=== PATIENT | female | born 1930 | race African-American/Black ===

== ENCOUNTER 2019-06-30 12:57 | Observation (INO) ==
[2019-06-30] MEDS ORDERED: SODIUM CHLORIDE 0.9% 1,000 ML IV STA (13:19)
[2019-06-30 14:23] LABS: Basophils % 0.4 % (0.0-0.8); Eosinophils # 0.1 10*3/uL (0.0-0.87); Eosinophils % 1.3 % (0.00-10.9); Hematocrit 40.9 VOL% (35.7-47.0); Hemoglobin 12.8 GM/DL (12.0-16.0); Immature Granulocytes % 0.4 %; Immature Granulocytes Absolute 0.03 #; Lymphocytes # 1.4 10*3/uL (1.4-4.0); Lymphocytes % 16.7 % (21.3-54.2); Mean Corpuscular HGB Conc 31.3 GM/DL (32-36); Mean Corpuscular Volume 94.9 FL (87-102); Mean Platelet Volume 10.6 FL (9.6-12.0); Monocytes % 4.1 % (1.7-12.7); Neutrophils % 77.1 % (38.7-73.9); Platelet Count 210 T/CUMM (130-400); Red Blood Count 4.31 MC/CUMM (3.8-5.5); Red Cell Distribution Width 14.8 % (9.3-17.3); White Blood Count 8.3 T/CUMM (4-12)
[2019-06-30 14:35] LABS: Albumin 2.6 G/DL (3.4-5.0); Bilirubin,Total 0.7 MG/DL (0.2-1.0); Total Protein 6.4 G/DL (6.4-8.3)
[2019-06-30 16:47] LABS: Apearance,Urine CLEAR (Clear); Bacteria,Urine Occasional /HPF (Few); Bilirubin,Urine Negative (Negative); Blood, Urine Negative (Negative); Glucose,Urine (UA) Negative (Negative); Ketones,Urine Negative (Negative); Mucus,Urine Occasional /LPF (Occasional); Nitrite,Urine Negative (Negative); Protein,Urine Negative; RBC,Urine 2 /HPF (0-4); Squamous Epithelial Cell,Urine Occasional /HPF (0-10); Urine Color Yellow (Yellow); Urine Specific Gravity 1.014 (1.001-1.035); Urine Urobilinogen < 2.0 EU/DL (0.2-1.0); WBC,Urine 2 /HPF (0-6)
[2019-06-30 16:54] LABS: Barbiturates Screen,Urine Negative (Negative); Benzodiazepines Screen,Urine Negative (Negative); Cannabinoid Screen,Urine Negative (Negative); Opiate Screen,Urine Negative (Negative); Phencyclidine Screen,Urine Negative (Negative)
[2019-06-30] MEDS ORDERED: ACETAMINOPHEN 325 MG TABLET PO PRN (16:55)
[2019-06-30] MEDS ORDERED: DEXTROSE 50% 25 GM/50 ML VIAL IV PRN (16:55)
[2019-06-30] MEDS ORDERED: ONDANSETRON 4 MG/2 ML VIAL IV PRN (16:55)
[2019-06-30] MEDS ORDERED: GLUCAGON 1 MG VIAL IM PRN (16:55)
[2019-06-30] MEDS ORDERED: SODIUM CHLORIDE 0.9% 1,000 ML IV SCH (17:30)
[2019-06-30] MEDS ORDERED: ENOXAPARIN 30 MG/0.3 ML SYRINGE SUBCUT SCH (21:00)
[2019-06-30] MEDS: INSULIN REGULAR 100 UNIT/ML SUBCUT SCH (21:50)
[2019-07-01 05:27] LABS: Basophils % 0.6 % (0.0-0.8); Eosinophils # 0.2 10*3/uL (0.0-0.87); Eosinophils % 2.5 % (0.00-10.9); Hematocrit 37.8 VOL% (35.7-47.0); Hemoglobin 11.9 GM/DL (12.0-16.0); Immature Granulocytes % 0.4 %; Immature Granulocytes Absolute 0.03 #; Lymphocytes # 2.4 10*3/uL (1.4-4.0); Lymphocytes % 34.1 % (21.3-54.2); Mean Corpuscular HGB Conc 31.5 GM/DL (32-36); Mean Corpuscular Volume 95.2 FL (87-102); Mean Platelet Volume 10.3 FL (9.6-12.0); Monocytes % 8.1 % (1.7-12.7); Neutrophils % 54.3 % (38.7-73.9); Platelet Count 188 T/CUMM (130-400); Red Blood Count 3.97 MC/CUMM (3.8-5.5); Red Cell Distribution Width 14.7 % (9.3-17.3); White Blood Count 6.9 T/CUMM (4-12)
[2019-07-01 05:59] LABS: Calcium 8.4 MG/DL (8.5-10.1)
[2019-07-01] MEDS ORDERED: LEVOTHYROXINE 50 MCG TABLET PO SCH (06:30)
[2019-07-01] MEDS: INSULIN REGULAR 100 UNIT/ML SUBCUT SCH ×2 (07:59→10:48)
[2019-07-01] MEDS ORDERED: PANTOPRAZOLE 40 MG TABLET PO SCH (09:00)
[2019-07-01] MEDS ORDERED: SIMVASTATIN 20 MG TABLET PO SCH (09:00)
[2019-07-01] MEDS ORDERED: DONEPEZIL 10 MG TABLET PO SCH (09:00)
[2019-07-01] MEDS ORDERED: ASPIRIN EC 81 MG TABLET PO SCH (09:00)
[2019-07-01 12:34] VITALS: BP 108/54
== END 2019-07-01 13:01 | disposition home health service (06) ==
LOC: EDUNIT# → EDBD → N.EDINP 12:57 → N.ED 12:57 → N.5E 16:09
PROVIDERS: ADMIT Internal Medicine; ATTEND Internal Medicine

== ENCOUNTER 2019-07-29 12:15 | Observation (INO) ==
[2019-07-29] MEDS ORDERED: GLUCAGON 1 MG VIAL IM PRN (13:22)
[2019-07-29] MEDS ORDERED: DEXTROSE 50% 25 GM/50 ML VIAL IV PRN (13:22)
[2019-07-29] MEDS ORDERED: ONDANSETRON 4 MG/2 ML VIAL IV PRN (13:22)
[2019-07-29] MEDS ORDERED: ACETAMINOPHEN 325 MG TABLET PO PRN (13:22)
[2019-07-29] MEDS ORDERED: GLUCOSE GEL 15 GM TUBE PO ONE (14:39)
[2019-07-29 14:48] LABS: Basophils % 0.2 % (0.0-0.8); Eosinophils # 0.1 10*3/uL (0.0-0.87); Eosinophils % 0.8 % (0.00-10.9); Hematocrit 39.1 VOL% (35.7-47.0); Hemoglobin 12.2 GM/DL (12.0-16.0); Immature Granulocytes % 0.5 %; Immature Granulocytes Absolute 0.05 #; Mean Corpuscular HGB Conc 31.2 GM/DL (32-36); Mean Corpuscular Volume 94.9 FL (87-102); Mean Platelet Volume 10.4 FL (9.6-12.0); Monocytes % 7.2 % (1.7-12.7); Neutrophils % 72.3 % (38.7-73.9); Platelet Count 218 T/CUMM (130-400); Red Blood Count 4.12 MC/CUMM (3.8-5.5); Red Cell Distribution Width 14.2 % (9.3-17.3); White Blood Count 10.3 T/CUMM (4-12)
[2019-07-29 15:09] LABS: Troponin I < 0.015 NG/ML (0.00-0.045)
[2019-07-29 15:21] LABS: Thyroid Stimulating Hormone 0.419 uIU/ml (0.358-3.74)
[2019-07-29 15:25] LABS: Albumin 2.7 G/DL (3.4-5.0); Bilirubin,Total 0.4 MG/DL (0.2-1.0); Calcium 9.3 MG/DL (8.5-10.1); Osmolality,Calculated 291.7 MOS/KG (273-304); Total Protein 6.8 G/DL (6.4-8.3)
[2019-07-29] MEDS: INSULIN LISPRO 100 UNIT/ML SUBCUT SCH ×2 (17:38→21:18)
[2019-07-29] MEDS: SODIUM CHLORIDE 0.9% 1,000 ML IV SCH ×2 (17:38→21:19)
[2019-07-29] MEDS: DOCUSATE SODIUM 100 MG CAPSULE PO SCH (21:17)
[2019-07-30 05:19] LABS: Calcium 8.1 MG/DL (8.5-10.1); Osmolality,Calculated 296.8 MOS/KG (273-304)
[2019-07-30] MEDS: LEVOTHYROXINE 50 MCG TABLET PO SCH (05:41)
[2019-07-30] MEDS: SODIUM CHLORIDE 0.9% 1,000 ML IV SCH ×3 (05:41→20:52)
[2019-07-30] MEDS ORDERED: ENALAPRIL 5 MG TABLET PO SCH (09:00)
[2019-07-30] MEDS: DOCUSATE SODIUM 100 MG CAPSULE PO SCH ×2 (09:11→20:49)
[2019-07-30] MEDS: PANTOPRAZOLE 40 MG TABLET PO SCH (09:11)
[2019-07-30] MEDS: ASPIRIN EC 81 MG TABLET PO SCH (09:11)
[2019-07-30] MEDS: DONEPEZIL 10 MG TABLET PO SCH (09:11)
[2019-07-30] MEDS: INSULIN LISPRO 100 UNIT/ML SUBCUT SCH ×4 (09:11→20:49)
[2019-07-30 16:02] LABS: Apearance,Urine CLOUDY (Clear); Bacteria,Urine Moderate /HPF (Few); Bilirubin,Urine Negative (Negative); Blood, Urine Small mg/dL (Negative); Glucose,Urine (UA) Negative (Negative); Ketones,Urine Negative (Negative); Nitrite,Urine Negative (Negative); Protein,Urine 100 MG/DL; Urine Color Yellow (Yellow); Urine Specific Gravity 1.012 (1.001-1.035); Urine Urobilinogen < 2.0 EU/DL (0.2-1.0); WBC,Urine 5623 /HPF (0-6)
[2019-07-30] MEDS: MEMANTINE 5 MG TABLET PO SCH (20:49)
[2019-07-31] MEDS: LEVOTHYROXINE 50 MCG TABLET PO SCH (05:33)
[2019-07-31] MEDS: SODIUM CHLORIDE 0.9% 1,000 ML IV SCH ×4 (05:33→21:17)
[2019-07-31] MEDS: ENALAPRIL 5 MG TABLET PO SCH (08:25)
[2019-07-31] MEDS: DOCUSATE SODIUM 100 MG CAPSULE PO SCH ×2 (08:44→21:17)
[2019-07-31] MEDS: ASPIRIN EC 81 MG TABLET PO SCH (08:44)
[2019-07-31] MEDS: PANTOPRAZOLE 40 MG TABLET PO SCH (08:44)
[2019-07-31] MEDS: INSULIN LISPRO 100 UNIT/ML SUBCUT SCH ×5 (08:44→21:31)
[2019-07-31] MEDS: DONEPEZIL 10 MG TABLET PO SCH (08:44)
[2019-07-31] MEDS: MEMANTINE 5 MG TABLET PO SCH ×2 (08:45→21:17)
[2019-07-31] MEDS ORDERED: cefTRIAXone 1,000 MG in SYRINGE 1 EACH IM SCH (12:30)
[2019-07-31] MEDS ORDERED: diphenhydrAMINE 25 MG/10 ML UDCUP PO ONE (15:13)
[2019-07-31] MEDS ORDERED: methylPREDNISolone SOD SUC 125 MG/2 ML VIAL IV ONE (15:13)
[2019-07-31] MEDS: ALBUTEROL/IPRATROPIUM 3 ML NEB RESP TX SCH ×2 (20:12→23:40)
[2019-08-01] MEDS: ALBUTEROL/IPRATROPIUM 3 ML NEB RESP TX SCH ×3 (03:24→11:18)
[2019-08-01] MEDS: LEVOTHYROXINE 50 MCG TABLET PO SCH (05:30)
[2019-08-01] MEDS ORDERED: NITROFURANTOIN MACRO/MONO 100 MG CAPSULE PO SCH (09:00)
[2019-08-01] MEDS: DONEPEZIL 10 MG TABLET PO SCH (09:43)
[2019-08-01] MEDS: ASPIRIN EC 81 MG TABLET PO SCH (09:43)
[2019-08-01] MEDS: PANTOPRAZOLE 40 MG TABLET PO SCH (09:44)
[2019-08-01] MEDS: DOCUSATE SODIUM 100 MG CAPSULE PO SCH (09:44)
[2019-08-01] MEDS: INSULIN LISPRO 100 UNIT/ML SUBCUT SCH ×2 (09:44→12:11)
[2019-08-01] MEDS: MEMANTINE 5 MG TABLET PO SCH (09:44)
[2019-08-01] MEDS: ENALAPRIL 5 MG TABLET PO SCH (09:44)
[2019-08-01 12:27] VITALS: BP 136/77
[2019-08-01] MEDS: SODIUM CHLORIDE 0.9% 1,000 ML IV SCH (14:05)
== END 2019-08-01 15:29 | disposition home or self-care (01) ==
LOC: N.5E
PROVIDERS: ADMIT Family Medicine; ATTEND Family Medicine

== ENCOUNTER 2019-08-19 17:27 | Observation (INO) ==
[2019-08-19] MEDS ORDERED: DEXTROSE 5% NACL 0.9% 1,000 ML IV SCH (20:00)
[2019-08-19 21:02] LABS: Basophils % 0.3 % (0.0-0.8); Eosinophils # 0.3 10*3/uL (0.0-0.87); Eosinophils % 2.9 % (0.00-10.9); Hematocrit 35.6 VOL% (35.7-47.0); Immature Granulocytes % 0.5 %; Immature Granulocytes Absolute 0.04 #; Lymphocytes # 2.3 10*3/uL (1.4-4.0); Lymphocytes % 26.3 % (21.3-54.2); Mean Corpuscular HGB Conc 30.9 GM/DL (32-36); Mean Corpuscular Volume 95.4 FL (87-102); Mean Platelet Volume 10.2 FL (9.6-12.0); Platelet Count 309 T/CUMM (130-400); Red Blood Count 3.73 MC/CUMM (3.8-5.5); Red Cell Distribution Width 14.4 % (9.3-17.3); White Blood Count 8.6 T/CUMM (4-12)
[2019-08-19 21:14] LABS: Apearance,Urine CLOUDY (Clear); Bacteria,Urine Many /HPF (Few); Bilirubin,Urine Negative (Negative); Blood, Urine Negative (Negative); Glucose,Urine (UA) 50 mg/dL (Negative); Ketones,Urine Negative (Negative); Nitrite,Urine Negative (Negative); Protein,Urine Negative; RBC,Urine 3 /HPF (0-4); Urine Color Yellow (Yellow); Urine Specific Gravity 1.017 (1.001-1.035); WBC,Urine 73 /HPF (0-6)
[2019-08-19 21:16] LABS: Calcium 8.7 MG/DL (8.5-10.1); Osmolality,Calculated 283.3 MOS/KG (273-304)
[2019-08-19] MEDS ORDERED: CIPROFLOXACIN 500 MG TABLET PO STA (21:29)
[2019-08-19] MEDS ORDERED: CIPROFLOXACIN 500 MG TABLET ONE (21:31)
[2019-08-19] MEDS ORDERED: ACETAMINOPHEN 325 MG TABLET PO PRN (22:31)
[2019-08-19] MEDS ORDERED: ONDANSETRON 4 MG/2 ML VIAL IV PRN (22:31)
[2019-08-19] MEDS ORDERED: GLUCAGON 1 MG VIAL IM PRN (22:31)
[2019-08-19] MEDS ORDERED: DEXTROSE 50% 25 GM/50 ML VIAL IV PRN (22:31)
[2019-08-20] MEDS: SODIUM CHLORIDE 0.9% 1,000 ML IV SCH ×3 (01:11→21:24)
[2019-08-20] MEDS: DOCUSATE SODIUM 100 MG CAPSULE PO SCH ×2 (08:19→21:23)
[2019-08-20] MEDS: PANTOPRAZOLE 40 MG TABLET PO SCH (08:19)
[2019-08-20] MEDS: CIPROFLOXACIN INJ 400 MG in PREMIX 1 EACH IV SCH ×2 (08:19→21:23)
[2019-08-20] MEDS: MAGNESIUM OXIDE 400 MG TABLET PO SCH ×2 (14:15→21:23)
[2019-08-20] MEDS: ENALAPRIL 5 MG TABLET PO SCH (15:16)
[2019-08-21 04:44] LABS: Basophils % 0.4 % (0.0-0.8); Eosinophils # 0.3 10*3/uL (0.0-0.87); Eosinophils % 3.4 % (0.00-10.9); Hematocrit 31.6 VOL% (35.7-47.0); Hemoglobin 9.7 GM/DL (12.0-16.0); Immature Granulocytes % 0.7 %; Immature Granulocytes Absolute 0.05 #; Mean Corpuscular HGB Conc 30.7 GM/DL (32-36); Monocytes % 7.9 % (1.7-12.7); Neutrophils % 61.6 % (38.7-73.9); Platelet Count 245 T/CUMM (130-400); Red Blood Count 3.29 MC/CUMM (3.8-5.5); Red Cell Distribution Width 14.5 % (9.3-17.3); White Blood Count 7.6 T/CUMM (4-12)
[2019-08-21] MEDS: SODIUM CHLORIDE 0.9% 1,000 ML IV SCH (04:57)
[2019-08-21 05:07] LABS: Calcium 8.8 MG/DL (8.5-10.1); Osmolality,Calculated 296.3 MOS/KG (273-304)
[2019-08-21] MEDS ORDERED: LEVOTHYROXINE 50 MCG TABLET PO SCH (06:30)
[2019-08-21] MEDS: MAGNESIUM OXIDE 400 MG TABLET PO SCH (10:11)
[2019-08-21] MEDS: ENALAPRIL 5 MG TABLET PO SCH (10:11)
[2019-08-21] MEDS: DOCUSATE SODIUM 100 MG CAPSULE PO SCH (10:12)
[2019-08-21] MEDS: CIPROFLOXACIN INJ 400 MG in PREMIX 1 EACH IV SCH (10:12)
[2019-08-21] MEDS: PANTOPRAZOLE 40 MG TABLET PO SCH (10:12)
[2019-08-21 15:01] VITALS: BP 153/68
== END 2019-08-21 15:59 | disposition home health service (06) ==
LOC: N.ED 17:27 → N.EDINP 17:27 → N.5E 21:56
PROVIDERS: ADMIT Family Medicine; ATTEND Family Medicine